=== PATIENT | male | born 1990 | race Caucasian/White ===

== ENCOUNTER 2019-01-28 20:04 | Emergency (ER) | payer MEDICAID ==
[~2019-01-28] VITALS: Ht 175.3 cm; Wt 109.1 kg
[2019-01-28 20:07] VITALS: BP 148/73
[2019-01-28] MEDS ORDERED: OLAN10TA3 PO (20:07)
[2019-01-28] MEDS ORDERED: SERT50TA12 PO (20:07)
[2019-01-28] MEDS ORDERED: NEOMYCIN/POLYMYXIN B/HYDROCORT 10 ML OTIC SOLUTION AS ONE (20:45)
== END 2019-01-28 20:54 | disposition home or self-care (01) ==
LOC: EMS 20:07
DX: H60.92 Unspecified otitis externa, left ear (principal); F32.9 Major depressive disorder, single episode, unspecified; F20.9 Schizophrenia, unspecified